=== PATIENT | male | born 1985 | race Caucasian/White ===

== ENCOUNTER 2017-04-27 21:08 | Emergency (ER) | payer MEDICAID ==
[2017-04-28 00:32] LABS: BILIRUBIN, URINE NEG (NEG); BLOOD, URINE NEG (NEG); GLUCOSE,URINE NEG (NEG); KETONE, URINE NEG (NEG); NITRITE,URINE NEG (NEG); PH, URINE 6.5 (5.0-8.5); URINE COLOR YELLOW (YELLW/STRAW); URINE LEUKOCYTE ESTERASE NEG (NEG)
[2017-04-28 00:34] LABS: COMMENT (UR) CULT NOT INDICATED; CULTURE IF INDICATED CULT NOT INDICATED
[2017-04-28] MEDS: ONDANSETRON ODT 4 MG TAB PO/SL (00:41)
[2017-04-28] MEDS: AZITHROMYCIN 250 MG TAB PO (00:41)
[2017-04-28] MEDS: LIDOCAINE HCL 1% 50 ML VIAL XX (00:42)
[2017-04-28 02:24] LABS: CHLAMYDIA PCR NOT DETECTED (NOT DETECT); NEISSERIA PCR NOT DETECTED (NOT DETECT)
== END 2017-04-28 00:32 | disposition home or self-care (01) ==
LOC: NEPK 21:08
DX: R39.89 Other symptoms and signs involving the genitourinary system (principal); R36.9 Urethral discharge, unspecified; F32.9 Major depressive disorder, single episode, unspecified; F41.9 Anxiety disorder, unspecified
CPT/HCPCS: 81001; 87491; 87591; 99283

== ENCOUNTER 2017-05-17 21:54 | Emergency (ER) | payer SELFPAY ==
[~2017-05-17] VITALS: Ht 175.3 cm; Wt 56.8 kg
[~2017-05-17 21:54] MED LIST: CEPH-460 PO
[2017-05-17 22:36] VITALS: BP 151/89; PULSE 81; RESP 18; TEMP 98.3; O2SAT 99
--- NOTE | 2017-05-18 00:07 | PD ---
HPI Chief Complaint: Complaint Time Seen by Provider: 00:06 Travel History International Travel<30 days: No Contact w/Intl Traveler<30days: No Traveled to known affect area: No History of Present Illness HPI 31-year-old male came to the emergency room with history of penile discharge for past 2 days. Patient says he had something very similar about a month ago. He was discharged home on antibiotics and when he called the next day he was told that he was negative for GC and chlamydia. Patient is sexually active with his girlfriend and has unprotected sex. He is otherwise healthy. No history of blood in the discharge or semen. No history of fever or chills. No history of joint pains. PFSH Past Medical History Narrative Medical List of his past medical, surgical, social and family history is reviewed from the nursing note. Anxiety: Yes Depression: Yes Past Surgical History Other Surgery: Yes (VASECTOMY) Social History Alcohol Use: No Tobacco Use: Yes Substance Use: No Allergies-Medications (Allergen,Severity, Reaction): Coded Allergies: bupropion (Verified Allergy, Severe, 05/20/17) Comments List of his past medical, surgical, social and family history as reviewed from the nursing note. Reported Meds & Prescriptions Reported Meds & Active Scripts Active Pyridium (Phenazopyridine HCl) 100 Mg Tab 100 Mg PO Q8H PRN Cipro (Ciprofloxacin HCl) 500 Mg Tab 500 Mg PO BID Doxycycline Hyclate 100 Mg Cap 100 Mg PO BID 7 Days Narrative Medication List of his allergies reviewed from the nursing note. Review of Systems Except as stated in HPI: all other systems reviewed are Neg Genitourinary: Positive: Discharge Physical Exam Narrative GENERAL: Awake, alert, no obvious distress SKIN: Focused skin assessment warm/dry. HEAD: Atraumatic. Normocephalic. EYES: Pupils equal and round. No scleral icterus. No injection or drainage. ENT: No nasal bleeding or discharge. Mucous membranes pink and moist. NECK: Trachea midline. No JVD. CARDIOVASCULAR: Regular rate and rhythm. No murmur appreciated. RESPIRATORY: No accessory muscle use. Clear to auscultation. Breath sounds equal bilaterally. GASTROINTESTINAL: Abdomen soft, non-tender, nondistended. Hepatic and splenic margins not palpable. MUSCULOSKELETAL: No obvious deformities. No clubbing. No cyanosis. No edema. NEUROLOGICAL: Awake and alert. No obvious cranial nerve deficits. Motor grossly within normal limits. Normal speech. PSYCHIATRIC: Appropriate mood and affect; insight and judgment normal. Data Data Last Documented VS Vital Signs Date Time Temp Pulse Resp B/P (MAP) Pulse Ox O2 Delivery O2 Flow Rate FiO2 05/18/17 01:43 80 16 140/82 (101) 98 05/18/17 00:39 Room Air 05/17/17 22:36 98.3 Orders Orders Urinalysis - C+S If Indicated (05/18/17 00:05) Gc And Chlamydia Pcr (05/18/17 00:15) Ed Discharge Order (05/18/17 01:04) Labs Laboratory Tests Test 05/18/17 00:07 05/18/17 00:15 Urine Color YELLOW Urine Turbidity CLEAR Urine pH 7.0 Urine Specific [place] 1.009 Urine Protein NEG mg/dL Urine Glucose (UA) NEG mg/dL Urine Ketones NEG mg/dL Urine Occult Blood NEG Urine Nitrite NEG Urine Bilirubin NEG Urine Leukocyte Esterase NEG Urine Squamous Epithelial Cells 0-5 /hpf Microscopic Urinalysis Comment CULT NOT INDICATED Chlamydia trachomatis DNA (PCR) NOT DETECTED Neisseria gonorrhoeae DNA (PCR) NOT DETECTED MDM Medical Decision Making Medical Screen Exam Complete: Yes Emergency Medical Condition: Yes Medical Record Reviewed: Yes Differential Diagnosis urethritis, UTI Narrative Course 1:07 AM UA is negative. I'll send him home with prescription for doxycycline. He will be notified if his GC and/or chlamydia is positive. Procedures EKG Prior to Arrival: No Diagnosis Primary Impression: Urethritis Referrals: Primary Care Physician Additional Instructions: If GC and/or chlamydia comes back positive we'll receive a phone call from us to confirm. In which case your partner should be treated as well. Take the medication as per the prescription direction. Return to the ER if condition worsens or any other new concerns. Otherwise follow-up with your primary care. Med/Other Pt SpecificInfo: Prescription(s) given Scripts Doxycycline Hyclate (Doxycycline Hyclate) 100 Mg Cap 100 MG PO BID for Infection for 7 Days, #14 CAP 0 Refills Prov: Chacho Lopez MD 05/18/17 Disposition: 01 DISCHARGE HOME Condition: Stable Chacho Lopez MD May 18, 2017 00:07
[2017-05-18 00:29] LABS: BILIRUBIN, URINE NEG (NEG); BLOOD, URINE NEG (NEG); GLUCOSE,URINE NEG (NEG); KETONE, URINE NEG (NEG); NITRITE,URINE NEG (NEG); URINE LEUKOCYTE ESTERASE NEG (NEG)
[2017-05-18 00:39] VITALS: BP 138/66; PULSE 68; RESP 16; O2SAT 100
[2017-05-18 00:42] LABS: URINE COLOR YELLOW (YELLW/STRAW)
[2017-05-18 00:44] LABS: SQUAMOUS EPITHELIAL CELL URINE 0-5 /hpf (0-5)
[2017-05-18] MEDS ORDERED: DOXY100C PO (01:05)
[2017-05-18 01:43] VITALS: BP 140/82
== END 2017-05-18 01:46 | disposition home or self-care (01) ==
LOC: PHED 21:54
DX: N34.2 Other urethritis (principal); Z72.0 Tobacco use; Z86.59 Personal history of other mental and behavioral disorders
CPT/HCPCS: 81001; 87491; 87591; 99283

== ENCOUNTER 2017-05-20 01:18 | Emergency (ER) | payer MEDICAID ==
[~2017-05-20] VITALS: Ht 175.3 cm; Wt 57.0 kg
[~2017-05-20 01:18] MED LIST changes: -CEPH-460 PO; +DOXY100C PO
[2017-05-20 01:26] VITALS: BP 120/72; PULSE 82; RESP 20; TEMP 97.9; O2SAT 95
--- NOTE | 2017-05-20 02:07 | PD ---
HPI Chief Complaint: Medication Refill Request Time Seen by Provider: 01:58 Travel History International Travel<30 days: No Contact w/Intl Traveler<30days: No Traveled to known affect area: No History of Present Illness HPI 31-year-old male presents to the emergency department by private transportation for evaluation of recurrent penile discharge. This is his third visit to the emergency department since April for same complaint. April patient was treated with Rocephin and azithromycin outpatient course of Keflex with symptom relief and then recurrence of symptoms and was seen most recently 2 days ago again for clear to white penile discharge that has been intermittent associated with irritation and discomfort with urination. Urinalysis was normal on both visits and GC chlamydia PCR were both negative on both visits. Patient also most recently was given prescription for doxycycline. Patient states he has taken 4 doses of the medication he feels agitated he feels fuzzy and had and he is concerned he is having an adverse reaction to the doxycycline. Patient states with his visit in April the symptoms resolved quickly and with the visit 2 days ago the doxycycline has had no impact on his symptoms. Patient is since the active in a monogamous relationship with his partner of 13 years and is status post vasectomy does not use a condom. Patient denies other concerns or complaints he has had no lesions to the penis no vesicles or ulcerations and no redness or inflammatory changes. Patient rates discomfort presently is 0/10 intensity. Patient denies any testicular pain or scrotal pain or redness. PFSH Past Medical History Narrative Medical Anxiety depression, vasectomy; tobacco use; nursing notes reviewed Anxiety: Yes Depression: Yes Diminished Hearing: No Tetanus Vaccination: Unknown Influenza Vaccination: No Past Surgical History Other Surgery: Yes (VASECTOMY) Social History Alcohol Use: No Tobacco Use: Yes (1 pack per day) Substance Use: No Allergies-Medications (Allergen,Severity, Reaction): Coded Allergies: bupropion (Verified Allergy, Severe, 05/20/17) Reported Meds & Prescriptions Reported Meds & Active Scripts Active Doxycycline Hyclate 100 Mg Cap 100 Mg PO BID 7 Days Review of Systems Except as stated in HPI: all other systems reviewed are Neg General / Constitutional: No: Fever, Chills HENT: No: Congestion Cardiovascular: No: Chest Pain or Discomfort Respiratory: No: Shortness of Breath Gastrointestinal: No: Abdominal Pain Genitourinary: Positive: Dysuria, Discharge Skin: No Rash Neurologic: No: Weakness Psychiatric: No: Anxiety Hematologic/Lymphatic: No: Lymph Node Enlargement Physical Exam Narrative GENERAL: Well-developed well-nourish male in no acute distress or respiratory distress; no stridor no hoarseness SKIN: Warm and dry. No rash no urticaria. HEAD: Normocephalic. EYES: No scleral icterus. No injection or drainage. ENT: Airway is patent no angioedema NECK: Supple, trachea midline. No JVD or lymphadenopathy. CARDIOVASCULAR: Regular rate and rhythm without murmurs, gallops, or rubs. RESPIRATORY: Breath sounds equal bilaterally. No accessory muscle use. GASTROINTESTINAL: Abdomen soft, non-tender, nondistended. circumcised male without any evidence of penile discharge no induration or erythema no visible vesicles or ulcerations MUSCULOSKELETAL: No cyanosis, or edema. BACK: Nontender without obvious deformity. No CVA tenderness. Data Data Last Documented VS Vital Signs Date Time Temp Pulse Resp B/P (MAP) Pulse Ox O2 Delivery O2 Flow Rate FiO2 05/20/17 01:26 97.9 82 20 120/72 (88) 95 Orders Orders Urinalysis - C+S If Indicated (05/20/17 02:28) Ed Discharge Order (05/20/17 02:58) Labs Laboratory Tests Test 05/20/17 02:45 Urine pH 6.5 Urine Protein NEG mg/dL Urine Glucose (UA) NEG mg/dL Urine Ketones NEG mg/dL Urine Occult Blood SMALL Urine Nitrite NEG Urine Bilirubin NEG Urine Leukocyte Esterase NEG MDM Medical Decision Making Medical Screen Exam Complete: Yes Emergency Medical Condition: Yes Medical Record Reviewed: Yes Interpretation(s) Vital Signs Date Time Temp Pulse Resp B/P (MAP) Pulse Ox O2 Delivery O2 Flow Rate FiO2 05/20/17 01:26 97.9 82 20 120/72 (88) 95 Differential Diagnosis Urethritis, dysuria, balanitis, epididymitis, STI, UTI, adverse medication reaction Narrative Course Patient with normal exam no acute abnormality no discharge is noted upon direct of the urethral meatus; urine specimen collected; recommend discontinuing doxycycline Diagnosis Primary Impression: Dysuria Referrals: Urologist call for appointment [employer] urologist -- Dr Alexander Patient Instructions: General Instructions Additional Instructions: Increase fluid hydration Take medication as prescribed Follow-up with urologist Return to the emergency department for any concerns or change in condition Med/Other Pt SpecificInfo: Prescription(s) given Scripts Phenazopyridine (Pyridium) 100 Mg Tab 100 MG PO Q8H Y for DYSURIA, #6 TAB 0 Refills Prov: Sandy Torres MD 05/20/17 Ciprofloxacin (Cipro) 500 Mg Tab 500 MG PO BID for Infection, #6 TAB 0 Refills Prov: Sandy Torres MD 05/20/17 Disposition: 01 DISCHARGE HOME Condition: Stable Sandy Torres MD May 20, 2017 02:07
[2017-05-20 02:56] LABS: BILIRUBIN, URINE NEG (NEG); BLOOD, URINE SMALL (NEG); GLUCOSE,URINE NEG (NEG); KETONE, URINE NEG (NEG); NITRITE,URINE NEG (NEG); PH, URINE 6.5 (5.0-8.5); URINE LEUKOCYTE ESTERASE NEG (NEG)
[2017-05-20 02:57] LABS: URINE COLOR YELLOW (YELLW/STRAW)
[2017-05-20] MEDS ORDERED: PHEN0.4T PO (03:00)
[2017-05-20] MEDS ORDERED: CIPR-9 PO (03:00)
[2017-05-20 03:03] LABS: SQUAMOUS EPITHELIAL CELL URINE 0-5 /hpf (0-5); WBC, URINE 0-2 /hpf (0-5)
[2017-05-20 03:11] VITALS: BP 126/78
== END 2017-05-20 03:17 | disposition home or self-care (01) ==
LOC: PHED 01:18
DX: R30.0 Dysuria (principal); F41.9 Anxiety disorder, unspecified; F32.9 Major depressive disorder, single episode, unspecified; F17.210 Nicotine dependence, cigarettes, uncomplicated; Z98.52 Vasectomy status; Z88.8 Allergy status to other drugs, medicaments and biological substances; Z79.899 Other long term (current) drug therapy
CPT/HCPCS: 81001; 99283